=== PATIENT | male | born 1995 | race Caucasian/White ===

== ENCOUNTER 2016-11-19 11:43 | Observation (INO) | payer OTHER ==
[~2016-11-19] VITALS: Ht 185.4 cm; Wt 65.0 kg
[2016-11-19 11:48] VITALS: BP 135/74; PULSE 86; RESP 20; TEMP 97.6; O2SAT 100
[2016-11-19] MEDS ORDERED: NEOSTIGMINE 3 MG/3 ML SYR IV ONE (12:00)
[2016-11-19] MEDS ORDERED: ONDANSETRON HCL 4 MG/2 ML VIAL IV PUSH ONE (12:00)
[2016-11-19] MEDS ORDERED: PROPOFOL 200 MG/20 ML AMP IV ONE (12:00)
[2016-11-19] MEDS ORDERED: RANITIDINE 50 MG/2 ML VIAL IV ONE (12:00)
--- NOTE | 2016-11-19 12:00 | PD ---
HPI Chief Complaint: Abdominal Pain Time Seen by Provider: 12:00 Travel History International Travel<30 days: No Contact w/Intl Traveler<30days: No Traveled to known affect area: No History of Present Illness HPI 21-year-old male presents to the ED for evaluation of 2 day history of anorexia , nausea, NBNB vomiting, lower abdominal pain and loose stools. Gradual onset. Patient denies fever, chills, previous abdominal surgery, melena, hematochezia , dysuria, penile discharge, back pain. PFSH Social History Tobacco Use: No Allergies-Medications (Allergen,Severity, Reaction): Coded Allergies: No Known Allergies (Unverified , 11/19/16) Review of Systems Except as stated in HPI: all other systems reviewed are Neg Physical Exam Narrative GENERAL: Well-nourished, well-developed white male in no acute distress. SKIN: Focused skin assessment warm/dry. HEAD: Normocephalic. EYES: No scleral icterus. No injection or drainage. NECK: Supple, trachea midline. No JVD or lymphadenopathy. CARDIOVASCULAR: Regular rate and rhythm without murmurs, gallops, or rubs. RESPIRATORY: Breath sounds equal bilaterally. No accessory muscle use. GASTROINTESTINAL: Abdomen soft, nondistended, no palpable masses. Tender to palpation in the right lower quadrant, Rosving's sign positive. Hypoactive bowel sounds. MUSCULOSKELETAL: No cyanosis, or edema. BACK: Nontender without obvious deformity. No CVA tenderness. Data Data Last Documented VS Vital Signs Date Time Temp Pulse Resp B/P Pulse Ox O2 Delivery O2 Flow Rate FiO2 11/19/16 11:48 97.6 86 20 135/74 100 Room Air Orders Complete Blood Count With Diff (11/19/16 12:04) Comprehensive Metabolic Panel (11/19/16 12:04) Lipase (11/19/16 12:04) Lactic Acid (11/19/16 12:04) Urinalysis - C+S If Indicated (11/19/16 12:04) Ct Abd/Pel W Iv Contrast(Rout) (11/19/16 12:04) Iv Access Insert/Monitor (11/19/16 12:04) NPO (11/19/16 12:04) Ondansetron Inj (Zofran Inj) (11/19/16 12:15) Sodium Chlor 0.9% 1000 Ml Inj (Ns 1000 M (11/19/16 12:04) Sodium Chloride 0.9% Flush (Ns Flush) (11/19/16 12:15) Morphine Inj (Morphine Inj) (11/19/16 12:30) Iohexol 350 Inj (Omnipaque 350 Inj) (11/19/16 13:32) Morphine Inj (Morphine Inj) (11/19/16 14:30) Admit Order (Ed Use Only) (11/19/16 14:38) Labs Laboratory Tests Test 11/19/16 11/19/16 11/19/16 12:00 12:20 12:40 White Blood Count 14.8 TH/MM3 Red Blood Count 5.79 MIL/MM3 Hemoglobin 16.2 GM/DL Hematocrit 47.6 % Mean Corpuscular Volume 82.2 FL Mean Corpuscular Hemoglobin 27.9 PG Mean Corpuscular Hemoglobin 34.0 % Concent Red Cell Distribution Width 13.1 % Platelet Count 243 TH/MM3 Mean Platelet Volume 10.7 FL Neutrophils (%) (Auto) 79.5 % Lymphocytes (%) (Auto) 12.4 % Monocytes (%) (Auto) 6.7 % Eosinophils (%) (Auto) 0.9 % Basophils (%) (Auto) 0.5 % Neutrophils # (Auto) 11.8 TH/MM3 Lymphocytes # (Auto) 1.8 TH/MM3 Monocytes # (Auto) 1.0 TH/MM3 Eosinophils # (Auto) 0.1 TH/MM3 Basophils # (Auto) 0.1 TH/MM3 CBC Comment DIFF FINAL Differential Comment Sodium Level 135 MEQ/L Potassium Level 3.5 MEQ/L Chloride Level 103 MEQ/L Carbon Dioxide Level 21.8 MEQ/L Anion Gap 10 MEQ/L Blood Urea Nitrogen 12 MG/DL Creatinine 0.93 MG/DL Estimat Glomerular Filtration 104 ML/MIN Rate Random Glucose 101 MG/DL Calcium Level 10.6 MG/DL Total Bilirubin 0.9 MG/DL Aspartate Amino Transf 19 U/L (AST/SGOT) Alanine Aminotransferase 18 U/L (ALT/SGPT) Alkaline Phosphatase 77 U/L Total Protein 8.4 GM/DL Albumin 4.4 GM/DL Lipase 78 U/L Lactic Acid Level 1.5 mmol/L Urine Color YELLOW Urine Turbidity CLEAR Urine pH 8.5 Urine Specific [place] 1.019 Urine Protein 30 mg/dL Urine Glucose (UA) NEG mg/dL Urine Ketones 40 mg/dL Urine Occult Blood NEG Urine Nitrite NEG Urine Bilirubin NEG Urine Urobilinogen LESS THAN 2.0 MG/DL Urine Leukocyte Esterase NEG Urine RBC 2 /hpf Urine WBC 1 /hpf Microscopic Urinalysis Comment CULT NOT INDICATED MDM Medical Decision Making Medical Screen Exam Complete: Yes Emergency Medical Condition: Yes Differential Diagnosis appendicitis versus gastroenteritis versus Narrative Course 21-year-old male presents to the ED for evaluation of 2 day history of anorexia , nausea, NBNB vomiting, lower abdominal pain and loose stools. Gradual onset. Patient denies fever, chills, previous abdominal surgery, melena, hematochezia , dysuria, penile discharge, back pain. Patient states nothing to eat today. Vitals reviewed. Physical exam reveals a thin white male in NAD. ++RLQ tenderness and Rosving's sign. Leukocytosis of 14.8 with a left shift. CT abdomen/ pelvis: Distended appendix with appendicolith, mild ileus. Call placed to Dr. Bradley, on-call general surgeon. Dr. Bradley's nurse, Shawnee Martini examined the patient and requests he be admitted to Dr. Bradley. Patient is agreeable to this plan. He is admitted for observation due to acute appendicitis. Diagnosis Primary Impression: Appendicitis Qualified Code: K35.80 - Acute appendicitis, unspecified acute appendicitis type Tati Rick Nov 19, 2016 12:00
[2016-11-19] MEDS ORDERED: SODIUM CHLOR 0.9% 1000 ML INJ 1,000 ML IV SCH (12:04)
[2016-11-19] MEDS ORDERED: SODIUM CHLORIDE 0.9% FLUSH 10 ML FLUSH IV FLUSH PRN ×2 (12:15→15:00)
[2016-11-19] MEDS ORDERED: KETOROLAC TROMETHAMINE 30 MG/ML (IVP) VIAL IV PUSH ONE (12:15)
[2016-11-19] MEDS ORDERED: ONDANSETRON HCL 4 MG/2 ML VIAL IVP ONE (12:15)
[2016-11-19] MEDS ORDERED: MORPHINE SULFATE 4 MG/ML INJ IV PUSH ONE ×2 (12:30→14:30)
[2016-11-19 12:41] LABS: AUTOMATED NEUTROPHIL # 11.8 TH/MM3 (1.8-7.7); BASOPHIL # 0.1 TH/MM3 (0-0.2); BASOPHIL % 0.5 % (0.0-2.0); EOSINOPHIL # 0.1 TH/MM3 (0-0.4); EOSINOPHIL % 0.9 % (0.0-4.0); HEMATOCRIT 47.6 % (39.0-51.0); HEMO FLAGS DIFF FINAL; LYMPH % 12.4 % (9.0-44.0); LYMPHOCYTE # 1.8 TH/MM3 (1.0-4.8); MEAN CELL VOLUME 82.2 FL (80.0-100.0); MEAN CORPUSCULAR HEMOGLOBIN 27.9 PG (27.0-34.0); MONO % 6.7 % (0.0-8.0); NEUT % 79.5 % (16.0-70.0); PLATELET COUNT 243 TH/MM3 (150-450); RED BLOOD COUNT 5.79 MIL/MM3 (4.50-5.90); RED CELL DISTRIBUTION WIDTH 13.1 % (11.6-17.2); WHITE BLOOD COUNT 14.8 TH/MM3 (4.0-11.0)
[2016-11-19 12:51] LABS: BLOOD, URINE NEG (NEG); GLUCOSE,URINE NEG (NEG); KETONE, URINE 40 mg/dL (NEG); NITRITE,URINE NEG (NEG); PH, URINE 8.5 (5.0-8.5); URINE COLOR YELLOW (YELLW/STRAW)
[2016-11-19 12:52] LABS: COMMENT (UR) CULT NOT INDICATED; CULTURE IF INDICATED CULT NOT INDICATED
[2016-11-19 12:54] LABS: ANION GAP 10 MEQ/L (5-15); AST (GOT) 19 U/L (15-39); BICARBONATE 21.8 MEQ/L (21.0-32.0); BLOOD UREA NITROGEN 12 MG/DL (7-18); CHLORIDE 103 MEQ/L (98-107); GLOMERULAR FILTRATION RATE 104 ML/MIN (>89); POTASSIUM 3.5 MEQ/L (3.5-5.1); SODIUM (NA) 135 MEQ/L (136-145)
[2016-11-19 12:55] LABS: ALT (GPT) 18 U/L (9-52)
[2016-11-19 12:58] LABS: ALKALINE PHOSPHATASE 77 U/L (45-117); TOTAL BILIRUBIN ADULT 0.9 MG/DL (0.2-1.0)
[2016-11-19] MEDS ORDERED: IOHEXOL 350 MG/ML 10 ML VIAL (for RAD DIAG) IV ONE (13:32)
--- NOTE | 2016-11-19 14:05 | RADRPT ---
EXAM DATE/TIME: 11/19/2016 13:19 [facility] COMPARISON: No previous studies available for comparison. INDICATIONS : Upper abdomen pain for two days. IV CONTRAST: 94 cc Omnipaque 350 (iohexol) IV ORAL CONTRAST: No oral contrast ingested. RADIATION DOSE: 8.27 CTDIvol (mGy) MEDICAL HISTORY : None SURGICAL HISTORY : None. ENCOUNTER: Initial ACUITY: 2 days PAIN SCALE: 7/10 LOCATION: Bilateral upper quadrant of abdomen TECHNIQUE: Volumetric scanning of the abdomen and pelvis was performed. Using automated exposure control and ad justment of the mA and/or kV according to patient size, radiation dose was kept as low as reasonably achievable to obtain optimal diagnostic quality images. DICOM format image data is available electro nically for review and comparison. FINDINGS: LOWER LUNGS: The visualized lower lungs are clear. LIVER: Homogeneous density without lesion. There is no dilation of the biliary tree. No calcified gallston es. SPLEEN: Normal size without lesion. PANCREAS: Within normal limits. KIDNEYS: Normal in size and shape. There is no mass, stone or hydronephrosis. ADRENAL GLANDS: Within normal limits. VASCULAR: There is no aortic aneurysm. BOWEL/MESENTERY: Mild small bowel ileus is noted with several loops of distended small bowel containing air fluid leve ls. The appendix is distended measuring 1.3 cm in diameter. An appendicolith is seen at the base of t he appendix adjacent to cecum. Small amount of free fluid in the pelvis. ABDOMINAL WALL: Within normal limits. RETROPERITONEUM: There is no lymphadenopathy. BLADDER: No wall thickening or mass. REPRODUCTIVE: Within normal limits. INGUINAL: There is no lymphadenopathy or hernia. MUSCULOSKELETAL: Within normal limits for patient age. CONCLUSION: Distended appendix with associated appendicolith characteristic of early appendicitis . Mild small intestinal ileus. Minimal free fluid in the pelvic cul-de-sac. Yandel Phelps MD on November 19, 2016 at 13:58 Board Certified Radiologist. This report was verified electronically.
--- NOTE | 2016-11-19 15:00 | HHI.HP ---
cc: Mario Bradley MD [facility] Service Admission history and physical NOTE FOR SURGICAL ATTENDING, DR. MARIO BRADLEY General Surgery Primary Care Physician No Primary Care Physician Admission Diagnosis acute appendicitis Chief Complaint: Abdominal pain History of Present Illness This is a 21 year old male with a past medical history of a heart murmur who reports a two day history of RIGHT lower abdominal pain with associated nausea without vomiting. He reports no sick contacts. A CT abd/pelvis was completed which shows a distended appendix with associated appendicolith characteristic of early appendicitis. He has a mildly elevated WBC. ALl other labs are essentially unremarkable. A General Surgery admission has been requested for this patient with acute appendicitis. Review of Systems Constitutional: COMPLAINS OF: Change in appetite, DENIES: Chills Endocrine: DENIES: Polydipsia, Polyuria, Polyphagia Eyes: DENIES: Diplopia Ears, nose, mouth, throat: DENIES: Tinnitus Respiratory: DENIES: Apneas, Cough Cardiovascular: DENIES: Chest pain Gastrointestinal: COMPLAINS OF: Abdominal pain, Nausea, DENIES: Vomiting Genitourinary: DENIES: Urgency, Hematuria Musculoskeletal: DENIES: Joint pain Integumentary: DENIES: Abnormal pigmentation Hematologic/lymphatic: DENIES: Bruising Immunologic/allergic: DENIES: Eczema Neurologic: DENIES: Headache, Localized weakness Psychiatric: DENIES: Mood changes, Depression, Hallucinations Past Family Social History Past Medical History Heart murmur Past Surgical History skin lesions removed on abdomen x2 Reported Medications None Allergies: Coded Allergies: No Known Allergies (Unverified , 11/19/16) Active Ordered Medications Current Medications Medications (Trade) Dose Ordered Sig/Kacy Route Start Time Stop Time Status Last Admin Sodium Chloride 2 ml 2 ml UNSCH PRN IV FLUSH 11/19/16 12:15 (NS 1000 ml Inj) 1,000 ml @ 125 mls/hr Q8H IV 11/19/16 14:50 UNV (NS Flush) 2 ml BID IV FLUSH 11/19/16 21:00 UNV (NS Flush) 2 ml UNSCH PRN IV FLUSH 11/19/16 15:00 UNV Pantoprazole Sodium 40 mg 40 mg DAILY IV 11/20/16 09:00 UNV (Zosyn 3.375 Gm Premix) 50 ml @ 100 mls/hr Q8H IV 11/19/16 15:00 UNV Family History Noncontributory Social History Denies tobacco use Denies EtOH use Denies illicit drug use Physical Exam Vital Signs Vital Signs Date Time Temp Pulse Resp B/P Pulse Ox O2 Delivery O2 Flow Rate FiO2 11/19/16 11:48 97.6 86 20 135/74 100 Room Air Physical Exam GENERAL: 21 year old male resting in bed in no acute distress. SKIN: Warm and dry. Patient has tattoos HEAD: Atraumatic. Normocephalic. EYES: Pupils equal and round. No scleral icterus. No injection or drainage. ENT: No nasal bleeding or discharge. Mucous membranes pink and moist. NECK: Trachea midline. CARDIOVASCULAR: Regular rate and rhythm. RESPIRATORY: No accessory muscle use. Clear to auscultation. Breath sounds equal bilaterally. GASTROINTESTINAL: Abdomen soft, flat; RLQ pain with palpation. Two small healed scars where skin lesions were removed. MUSCULOSKELETAL: Extremities without clubbing, cyanosis, or edema. No obvious deformities. NEUROLOGICAL: Awake and alert. No obvious cranial nerve deficits. Motor grossly within normal limits. Five out of 5 muscle strength in the arms and legs. Normal speech. PSYCHIATRIC: Appropriate mood and affect; insight and judgment normal. Laboratory Laboratory Tests Test 11/19/16 11/19/16 11/19/16 12:00 12:20 12:40 White Blood Count 14.8 Red Blood Count 5.79 Hemoglobin 16.2 Hematocrit 47.6 Mean Corpuscular Volume 82.2 Mean Corpuscular Hemoglobin 27.9 Mean Corpuscular Hemoglobin 34.0 Concent Red Cell Distribution Width 13.1 Platelet Count 243 Mean Platelet Volume 10.7 Neutrophils (%) (Auto) 79.5 Lymphocytes (%) (Auto) 12.4 Monocytes (%) (Auto) 6.7 Eosinophils (%) (Auto) 0.9 Basophils (%) (Auto) 0.5 Neutrophils # (Auto) 11.8 Lymphocytes # (Auto) 1.8 Monocytes # (Auto) 1.0 Eosinophils # (Auto) 0.1 Basophils # (Auto) 0.1 CBC Comment DIFF FINAL Differential Comment Sodium Level 135 Potassium Level 3.5 Chloride Level 103 Carbon Dioxide Level 21.8 Anion Gap 10 Blood Urea Nitrogen 12 Creatinine 0.93 Estimat Glomerular Filtration 104 Rate Random Glucose 101 Calcium Level 10.6 Total Bilirubin 0.9 Aspartate Amino Transf 19 (AST/SGOT) Alanine Aminotransferase 18 (ALT/SGPT) Alkaline Phosphatase 77 Total Protein 8.4 Albumin 4.4 Lipase 78 Lactic Acid Level 1.5 Urine Color YELLOW Urine Turbidity CLEAR Urine pH 8.5 Urine Specific [place] 1.019 Urine Protein 30 Urine Glucose (UA) NEG Urine Ketones 40 Urine Occult Blood NEG Urine Nitrite NEG Urine Bilirubin NEG Urine Urobilinogen LESS THAN 2.0 Urine Leukocyte Esterase NEG Urine RBC 2 Urine WBC 1 Microscopic Urinalysis Comment CULT NOT INDICATED Result Diagram: 11/19/16 1200 11/19/16 1200 Imaging Last 48 hours Impressions Abdomen/Pelvis CT 11/19/16 1204 Signed Impressions: Service Date/Time: October 13:19 - CONCLUSION: Distended appendix with associated appendicolith characteristic of early appendicitis. Mild small intestinal ileus. Minimal free fluid in the pelvic cul-de-sac. Yandel Phelps MD Assessment and Plan Problem List: (1) Appendicitis (2) Elevated white blood cell count (3) Abnormal CT of the abdomen (4) Right lower quadrant abdominal pain (5) Tattoo of skin Assessment and Plan 21 year old male with acute appendicitis -Plan for OR this evening -NPO -Obtain consents -Procedure explained in detail including risks -Discussed plan with Mother at beside -Patient and Mother agree with plan ADMISSION NOTE FOR SURGICAL ATTENDING, DR. MARIO BRADLEY I agree with above assessment and plan. The exam, history, and the medical decision-making described in the above note were completed with the assistance of the mid-level provider. I reviewed and agree with the findings presented. Patient seen in the hospital CT scan reviewed Exquisite tenderness right lower quadrant Classic signs and symptomatology of acute appendicitis with radiologic confirmation Immediate appendectomy I attest that I had a [id number] encounter with the patient on the same day, and personally performed and documented my assessment and findings in the medical record. The following services were provided during this hospital visit: Chart data review, vital sign assessments/reviewing monitor data Review of consultations notes if present. Medication orders/review and/or management Ordering and/or reviewing lab tests Ordering and/or interpreting/reviewing x-rays and/or diagnostic studies Care of the patient and discussion of the patient with the care team Documentation time To help prompt me to consider important information that might be impacting today's encounter and assessment, information from prior notes written by myself or my colleagues may have been "brought forward/copy and pasted" into today's note. Discussed Condition With Dr. Bradley Mr. Mendes + family at bedside Problem Qualifiers (1) Appendicitis: Qualified Code: K35.80 - Acute appendicitis, unspecified acute appendicitis type (2) Elevated white blood cell count: Qualified Code: D72.825 - Bandemia Bobbi Mir Nov 19, 2016 15:00 Mario Bradley MD Nov 19, 2016 17:40
[2016-11-19 15:14] VITALS: BP 133/85; PULSE 66; RESP 16; O2SAT 100
--- NOTE | 2016-11-19 15:20 | PD ---
Data Data Last Documented VS Vital Signs Date Time Temp Pulse Resp B/P Pulse Ox O2 Delivery O2 Flow Rate FiO2 11/19/16 11:48 97.6 86 20 135/74 100 Room Air Orders Complete Blood Count With Diff (11/19/16 12:04) Comprehensive Metabolic Panel (11/19/16 12:04) Lipase (11/19/16 12:04) Lactic Acid (11/19/16 12:04) Urinalysis - C+S If Indicated (11/19/16 12:04) Ct Abd/Pel W Iv Contrast(Rout) (11/19/16 12:04) Iv Access Insert/Monitor (11/19/16 12:04) NPO (11/19/16 12:04) Ondansetron Inj (Zofran Inj) (11/19/16 12:15) Sodium Chlor 0.9% 1000 Ml Inj (Ns 1000 M (11/19/16 12:04) Sodium Chloride 0.9% Flush (Ns Flush) (11/19/16 12:15) Morphine Inj (Morphine Inj) (11/19/16 12:30) Iohexol 350 Inj (Omnipaque 350 Inj) (11/19/16 13:32) Morphine Inj (Morphine Inj) (11/19/16 14:30) Admit Order (Ed Use Only) (11/19/16 14:38) Labs Laboratory Tests Test 11/19/16 11/19/16 11/19/16 12:00 12:20 12:40 White Blood Count 14.8 TH/MM3 Red Blood Count 5.79 MIL/MM3 Hemoglobin 16.2 GM/DL Hematocrit 47.6 % Mean Corpuscular Volume 82.2 FL Mean Corpuscular Hemoglobin 27.9 PG Mean Corpuscular Hemoglobin 34.0 % Concent Red Cell Distribution Width 13.1 % Platelet Count 243 TH/MM3 Mean Platelet Volume 10.7 FL Neutrophils (%) (Auto) 79.5 % Lymphocytes (%) (Auto) 12.4 % Monocytes (%) (Auto) 6.7 % Eosinophils (%) (Auto) 0.9 % Basophils (%) (Auto) 0.5 % Neutrophils # (Auto) 11.8 TH/MM3 Lymphocytes # (Auto) 1.8 TH/MM3 Monocytes # (Auto) 1.0 TH/MM3 Eosinophils # (Auto) 0.1 TH/MM3 Basophils # (Auto) 0.1 TH/MM3 CBC Comment DIFF FINAL Differential Comment Sodium Level 135 MEQ/L Potassium Level 3.5 MEQ/L Chloride Level 103 MEQ/L Carbon Dioxide Level 21.8 MEQ/L Anion Gap 10 MEQ/L Blood Urea Nitrogen 12 MG/DL Creatinine 0.93 MG/DL Estimat Glomerular Filtration 104 ML/MIN Rate Random Glucose 101 MG/DL Calcium Level 10.6 MG/DL Total Bilirubin 0.9 MG/DL Aspartate Amino Transf 19 U/L (AST/SGOT) Alanine Aminotransferase 18 U/L (ALT/SGPT) Alkaline Phosphatase 77 U/L Total Protein 8.4 GM/DL Albumin 4.4 GM/DL Lipase 78 U/L Lactic Acid Level 1.5 mmol/L Urine Color YELLOW Urine Turbidity CLEAR Urine pH 8.5 Urine Specific [place] 1.019 Urine Protein 30 mg/dL Urine Glucose (UA) NEG mg/dL Urine Ketones 40 mg/dL Urine Occult Blood NEG Urine Nitrite NEG Urine Bilirubin NEG Urine Urobilinogen LESS THAN 2.0 MG/DL Urine Leukocyte Esterase NEG Urine RBC 2 /hpf Urine WBC 1 /hpf Microscopic Urinalysis Comment CULT NOT INDICATED MDM Supervised Visit with GIRISH: Yes Narrative Course The history, exam, and medical decision-making in the associated mid-level provider note were completed with my assistance. I reviewed and agree with the findings presented. I attest that I had a [id number] encounter with the patient on the same day, and personally performed and documented my assessment and findings in the medical record. *My assessment and Findings: 21-year-old male presents emergent part of anorexia right lower quadrant abdominal pain and tenderness. Symptoms strongly suggestive of appendicitis. CT scan is consistent with a dilated appendix suggestive of acute appendicitis. White count mildly elevated. He'll be admitted to the surgical service for appendectomy. Diagnosis Primary Impression: Appendicitis Qualified Code: K35.80 - Acute appendicitis, unspecified acute appendicitis type Harris Vega MD Nov 19, 2016 15:19
[2016-11-19] MEDS ORDERED: BUPIVACAINE/EPINEPHRINE 0.5% PF 30 ML VIAL ONE (16:40)
[2016-11-19] MEDS ORDERED: ACETAMINOPHEN 1000 MG/100 ML VIAL IV ONE (17:09)
[2016-11-19] MEDS ORDERED: FAMOTIDINE 20 MG/2 ML VIAL ONE (17:09)
[2016-11-19] MEDS: SODIUM CHLOR 0.9% 1000 ML INJ 1,000 ML IV SCH ×2 (17:14→20:42)
[2016-11-19] MEDS: PIPERACIL-TAZO 3.375 GM PREMIX 50 ML IV SCH (17:15)
--- NOTE | 2016-11-19 18:53 | HHI.PR ---
cc: Mario Bradley MD Immediate Post Op Note Procedure Date: Nov 19, 2016 Pre Op Diagnosis: (1) Appendicitis (2) Elevated white blood cell count (3) Abnormal CT of the abdomen (4) Right lower quadrant abdominal pain (5) Tattoo of skin Post Op Diagnosis: (1) Appendicitis (2) Elevated white blood cell count (3) Abnormal CT of the abdomen (4) Right lower quadrant abdominal pain (5) Tattoo of skin (6) Status post laparoscopic appendectomy Surgeon: Mario Bradley Pharmacy Messenger(s): Refer to OR records Procedure: Laparoscopic appendectomy Findings: Inflamed appendix Cloudy fluid in pelvis Specimen(s) removed: None Anesthesia: General Drains: None IVF Patient to: PACU Patient Condition: Good Implant/Devices: SEE IMPLANT LOG (if applicable) Date/Time of Procedure: SEE SURGICAL CARE RECORD Mario Bradley MD Nov 19, 2016 18:53
[2016-11-19] MEDS ORDERED: NORC5TAB PO (18:55)
[2016-11-19] MEDS ORDERED: ONDANSETRON HCL 4 MG/2 ML VIAL IV PRN (19:00)
[2016-11-19] MEDS ORDERED: *MEPERIDINE 25 MG INJ VIAL PERIprocedural Use ONLY ONE (19:00)
[2016-11-19] MEDS ORDERED: fentaNYL CITRATE 250 MCG/5 ML AMP ONE (19:06)
[2016-11-19] MEDS ORDERED: MIDAZOLAM HCL 2 MG/2 ML VIAL ONE (19:06)
[2016-11-19 20:00] VITALS: BP 123/76; PULSE 79; RESP 16; TEMP 98.1; O2SAT 98
[2016-11-19] MEDS ORDERED: DO NOT ADM ANY ANTICOAGULANT DRUGS PRN (20:00)
[2016-11-19] MEDS: ACETAMINOPHEN/HYDROcodone 325 MG/5 MG TAB PO PRN (20:41)
[2016-11-19] MEDS: SODIUM CHLORIDE 0.9% FLUSH 10 ML FLUSH IV FLUSH SCH (20:42)
[2016-11-20] MEDS: PIPERACIL-TAZO 3.375 GM PREMIX 50 ML IV SCH ×3 (00:01→07:57)
[2016-11-20] MEDS: ACETAMINOPHEN INJ 100 ML IV SCH ×3 (00:01→11:02)
[2016-11-20 00:02] VITALS: BP 88/65; PULSE 93; RESP 16; TEMP 99.5; O2SAT 99
[2016-11-20 00:33] VITALS: BP 138/78; PULSE 80; RESP 17; TEMP 97.4; O2SAT 95
[2016-11-20 01:07] VITALS: O2SAT 97
[2016-11-20] MEDS: ACETAMINOPHEN/HYDROcodone 325 MG/5 MG TAB PO PRN ×3 (01:11→11:02)
[2016-11-20 04:52] VITALS: BP 98/55; PULSE 78; RESP 18; TEMP 96.6; O2SAT 95
[2016-11-20] MEDS: SODIUM CHLOR 0.9% 1000 ML INJ 1,000 ML IV SCH (05:45)
[2016-11-20 08:00] VITALS: BP 115/59; PULSE 59; RESP 16; TEMP 96.7; O2SAT 98
[2016-11-20] MEDS: SODIUM CHLORIDE 0.9% FLUSH 10 ML FLUSH IV FLUSH SCH (08:39)
[2016-11-20] MEDS ORDERED: PANTOPRAZOLE SODIUM 40 MG VIAL IV SCH (09:00)
--- NOTE | 2016-11-20 21:36 | MP ---
cc: AUSTIN BRADLEY DATE OF SURGERY 11/19/2016 PREOPERATIVE DIAGNOSIS Acute appendicitis. POSTOPERATIVE DIAGNOSIS Acute appendicitis. PROCEDURE Laparoscopic appendectomy. ANESTHESIA General. SURGEON Dr. Bradley. INDICATIONS This is a pleasant 21-year-old gentleman who had classic signs and symptomatology consistent with appendicitis. Plans were made for above. PROCEDURE IN DETAIL The patient taken to the operating room, placed in the supine position. After anesthesia his abdomen is prepped with Betadine. We made an incision just above the umbilicus after time-out was done. The Veress needle was inserted. The saline load test was performed. The abdomen was insufflated up to 15 mmHg. Ten mm trocar was introduced. Cameras were introduced. Two other working ports were placed 5 mm above the pubic tubercle and 5 mm in between the two previously placed ports. Camera was introduced. The appendix is obviously inflamed. We are able to grasp it, to take the harmonic scalpel and take down the mesentery of the appendix and appendiceal artery. We then place two Endoscopy ties around the base of the appendix and then amputate the appendix, place the appendix in the EndoCatch and pulled out through the umbilical incision and passed off the field. He had some cloudy greenish stained fluid in the pelvis which is evacuated. We irrigate with a liter of saline. Liver smooth. Appendical orifices were smooth. No other gross abnormalities seen. After this was done we then remove the irrigating solution and the CO2. The fascial level at the umbilicus closed with 0 Vicryl and skin is closed with 4-0 Vicryl. Steri-Strips applied. Sterile bandage applied. The patient tolerated the procedure well and had no immediate postop complications. Intraoperative findings were discussed with the mother by phone. Austin Bradley MD JDB/DANIELA /6:56 PM /9:32 PM
== END 2016-11-20 13:33 | disposition home or self-care (01) ==
LOC: NEPD 11:43 → NEDA 14:40 → N07B 19:49
PROVIDERS: ADMIT Surgery; ATTEND Surgery
DX: K35.80 Unspecified acute appendicitis (principal); K56.7 Ileus, unspecified; R01.1 Cardiac murmur, unspecified
CPT/HCPCS: 00840; 44970; 74177; 80053; 81001; 83605; 83690; 85025; 88304; 96374; 96375; 99285; C9113; G0378; J0131; J2175; J2250; J2270; J2405; J2543; J2710; J2780; J3010; J7030; Q9967